=== PATIENT | male | born 1960 | race Caucasian/White ===

== ENCOUNTER → 2025-11-19 | Outpatient (CLI) | payer OTHER, SELFPAY ==
--- NOTE | 2025-11-19 08:11 | MRI_ITS ---
PROCEDURE: PELVIS W/WO CONTRAST, 11/19/2025 REASON FOR EXAM: PLANNING FOR RADIATION THERAPY. Additional history: Per technologist report, PSA 5.59 in May 2025 TECHNIQUE: Multisequence multiplanar MRI pelvis was performed with and without IV contrast. IV Contrast: 19 mL Clariscan COMPARISON: Outside MRI 07/03/2025 ; note that images only are available for review, the report is not available at the time of the dictation. FINDINGS: Note that dynamic postcontrast sequences exclude significant portions of the prostatic midgland and apex from the field of view inferiorly. Exam additionally limited by fairly considerable presumed post biopsy blood products throughout the bilateral peripheral zones. Prostate size: 3.2 x 2.7 x 3.5 cm, estimated volume 15.7 mL. Per the above provided PSA, PSA density is 0.356 ng/mL. Fairly considerable presumed postprocedural/post biopsy blood products throughout the bilateral peripheral zones as above. Fiducial markers present. Interval placement of spacing material between the anterior rectum and posterior prostate m with good separation of the structures at the level of the base to midgland/apex. At the level of the far apex, closest margin roughly 6 mm. Suspect grade 2 anterior rectal wall infiltration. Transition zone: As below. Otherwise there are PI-RADS 2 findings. Peripheral Zone: Limitation related to fairly considerable presumed blood products as above. Additional fairly considerable and patchy background changes of likely prostatitis, making delineation of additional discrete lesions challenging: *Lesion 1: LEFT posterior greater than anterior peripheral zone base, 1.3 cm (series 12, image 18). *T2 score: 3. *DWI score: 3. *DCE: Positive. *Overall PI-RADS: PI-RADS 4. *Extracapsular extension:No gross extracapsular extension, however, there is capsular abutment greater than 1 cm which increases the risk of occult early/microscopic extracapsular extension. Note that this includes the region of the LEFT neurovascular bundle, which appears grossly unremarkable. *Lesion 2: RIGHT posteromedial peripheral zone apex, 0.5 cm (series 12, image 24). *T2 score: 4. *DWI score: 4. *DCE: Unable to evaluate due to exclusion from the field of view at this level. *Overall PI-RADS: PI-RADS 4. *Extracapsular extension:Capsular abutment without gross extracapsular extension. *Lesion 3: Junction of the RIGHT anterior transition zone and the overlying RIGHT anterior peripheral zone of the level of the midgland to apex, 0.6 cm (series 12, image 21). *T2 score: 3. *DWI score: 3. *DCE: Unable to evaluate due to exclusion from the field of view. *Overall PI-RADS: 3. *Extracapsular extension:Probable capsular abutment without gross extracapsular extension. Neurovascular bundles: Unremarkable. Seminal vesicles: Unremarkable. Bladder: Underdistended and suboptimally evaluated. T1 bright intraluminal material on noncontrast T1 sequences, suggesting hemorrhagic/proteinaceous material. Lymph nodes: Unremarkable. Bones: No destructive or frankly suspicious bony lesions identified on nondedicated evaluation. Other: Minimally imaged at least trace to small RIGHT hydrocele. MRI/Pelvis W/WO Contrast IMPRESSION: 1. Interval placement of spacing material and fiducial markers as above. Consi derable presumed post postprocedural blood products limits evaluation of the peripheral zones. Note also that the prostat ic midgland to apex is excluded from the field of view of dynamic postcontrast imaging. 2. Intraluminal signal characteristics within the bladder suggestive of hemorrh agic or proteinaceous material. Correlate for cystitis or and/or hematuria as potential etiologies. 3. 1.3 cm PI-RADS 4 lesion in the LEFT posterior greater than anterior peripher al zone base (lesion 1). 4. 0.5 cm PI-RADS 4 lesion in the RIGHT posteromedial peripheral zone apex (les ion 2). 5. 0.6 cm PI-RADS 3 lesion at the junction of the RIGHT anterior transition zon e and overlying RIGHT anterior peripheral zone at the level of the midgland to apex (lesion 3). 6. No gross extracapsular extension, however, there is capsular abutment by all lesions and greater than 1 cm by lesion 1 which increases the risk of occult early/microscopic extracapsular extension. Note th at this includes the region of the LEFT neurovascular bundle, which appears grossly unremarkable. 7. No overt pelvic lymphadenopathy. 8. Additional description as above. Reading Location: [id number]
== END | disposition home or self-care (01) ==
LOC: OPMRI 08:04
PROVIDERS: PCP Family Medicine; Referring Provider Student in an Organized Health Care Education/Training Program; Visit Provider Student in an Organized Health Care Education/Training Program
DX: C61 Malignant neoplasm of prostate (principal)
CPT/HCPCS: 72197; A9575; A4216